=== PATIENT | female | born 1995 | race Caucasian/White ===

== ENCOUNTER 2019-04-17 03:06 | Inpatient (IN) ==
[2019-04-17] MEDS ORDERED: BRETHINE SUBQ ONE (03:15)
[2019-04-17] MEDS ORDERED: LR 2,000 ML ONE (03:20)
[2019-04-17] MEDS ORDERED: BRETHINE ONE (03:20)
[2019-04-17] MEDS: LR 1,000 ML IV SCH ×2 (03:40→04:05)
[2019-04-17] MEDS ORDERED: PEPCID ONE (03:43)
[2019-04-17] MEDS ORDERED: BICITRA ONE (03:43)
[2019-04-17] MEDS ORDERED: GENTAMICIN 80 MG/NS 80 MG/50 ML IVPB IV ONE (03:52)
[2019-04-17] MEDS ORDERED: CLINDAMYCIN 600 MG/D5W 600 MG/50 ML IVPB IV ONE (03:52)
[2019-04-17] MEDS ORDERED: DURAMORPH ONE (04:04)
[2019-04-17] MEDS ORDERED: FENTANYL ONE (04:05)
[2019-04-17 04:06] LABS: BASO# 0.03 X1000 (0.0-0.2); BASO% 0.1 % (0.0-0.8); EOS# 0.09 X1000 (0.0-0.7); EOS% 0.4 % (0.0-10.0); HEMATOCRIT 36.3 % (37.0-47.0); HEMOGLOBIN 12.1 g/dL (12.0-16.0); IMM GRAN# 0.17 X1000 (0.0-0.04); IMM GRAN% 0.8 % (0.0-0.5); LYMPH# 3.84 X1000 (1.2-3.4); LYMPH% 17.8 % (20.5-51.1); MCH 30.5 PG (27-31); MCHC 33.3 g/dL (33-37); MCV 91.4 FL (81-99); MONO# 1.72 X1000 (0.11-0.59); MPV 10.1 FL (7.4-10.4); NEUT# 15.68 X1000 (1.4-6.5); NEUT% 72.9 % (42.2-75.2); PLT 396 X1000 (130-400); RBC 3.97 XMIL (4.2-5.4); RDW 12.7 % (11.5-14.5); WBC 21.53 X1000 (4.8-10.8)
[2019-04-17] MEDS ORDERED: DECADRON ONE (04:06)
[2019-04-17] MEDS ORDERED: ZOFRAN ONE (04:06)
[2019-04-17] MEDS ORDERED: PITOCIN ONE (04:10)
--- NOTE | 2019-04-17 04:10 | HISTORY AND PHYSICAL ---
HISTORY OF PRESENT ILLNESS: Ms Metzger is a 23-year-old, 3, para 2 at 39 weeks gestation, who presents with advanced cervical dilatation, intact membranes, and breech presentation. She was at 5 cm, 80% effaced, bulging bag of water. Presenting part was not palpable, and a bedside ultrasound performed revealed a breech presentation with the head in the right upper quadrant of the maternal abdomen. PAST SURGICAL HISTORY: Tonsillectomy and adenectomy. PAST MEDICAL HISTORY: Negative. SOCIAL HISTORY: Positive for smoking. No alcohol or drugs. FAMILY HISTORY: Noncontributory. PAST GYNECOLOGIC HISTORY: Pertinent for history of placental abruption, kidney infections, Rh- negative status, UTIs. REVIEW OF SYSTEMS: Negative for chest pain, shortness of breath, headache, cough, runny nose, fever, sore throat. OB HISTORY: Two vaginal deliveries in the past. PHYSICAL EXAM: GENERAL: This is a well-developed, well-nourished woman appearing her stated age, in active labor. LUNGS: Nonlabored breathing. HEART: Regular rate and rhythm. ABDOMEN: Gravid. EXTREMITIES: Without clubbing, cyanosis, or edema. PELVIC: 5 cm, bulging bag of water, presenting part high station. ASSESSMENT: A 23-year-old 3, para 2, at 39 weeks gestation, breech presentation in active phase of labor. PLAN: 1. Primary section. I discussed risks, complications, benefits, alternatives, failure rate with the patient and her . Plan to proceed with same. 2. Rh negative. RhoGAM evaluation . 3. [place] allergic. Plan preop and gently cord clamp.
[2019-04-17 04:14] LABS: BANDS 1 % (0-1); EOS 2 % (1-10); LYMPHS 15 % (21-51); MONO 5 % (1-9); SEGS 76 % (42-75)
[2019-04-17 04:16] LABS: BURR CELLS OCCASIONAL; OVALOCYTES OCCASIONAL; POIKILOCYTOSIS OCCASIONAL; POLYCHROM OCCASIONAL
[2019-04-17] MEDS ORDERED: NEO-SYNEPHRINE ONE (04:17)
[2019-04-17] MEDS ORDERED: LR 1,000 ML ONE (04:25)
[2019-04-17] MEDS ORDERED: REGLAN PO ONE (05:04)
[2019-04-17] MEDS ORDERED: LR 500 ML IV ONE (05:04)
[2019-04-17] MEDS ORDERED: PEPCID PO ONE (05:04)
[2019-04-17] MEDS ORDERED: PITOCIN IM PRN (05:07)
[2019-04-17] MEDS ORDERED: DEMEROL IM PRN (05:07)
[2019-04-17] MEDS ORDERED: MYLICON PO PRN (05:07)
[2019-04-17] MEDS ORDERED: AMBIEN PO PRN (05:07)
[2019-04-17] MEDS ORDERED: M-M-R II VACCINE SUBQ ONE (05:07)
[2019-04-17] MEDS ORDERED: BOOSTRIX VACCINE IM ONE (05:07)
[2019-04-17] MEDS ORDERED: DULCOLAX PR PRN (05:07)
[2019-04-17] MEDS ORDERED: PERCOCET-5 PO PRN (05:07)
[2019-04-17] MEDS ORDERED: PHENERGAN IM PRN (05:07)
[2019-04-17] MEDS ORDERED: PITOCIN 20 UNITS/NS 20 UNITS/1,000 ML IV.SOLN IV ONE (05:07)
[2019-04-17] MEDS ORDERED: HYDROXYZINE IM PRN (05:07)
[2019-04-17] MEDS ORDERED: TORADOL ONE (05:20)
--- NOTE | 2019-04-17 05:49 | OPERATIVE NOTE ---
PROCEDURE DATE: 04/17/2019 PROCEDURE: A low transverse section, primary. PREOPERATIVE DIAGNOSES: 1. at 39 weeks gestation. 2. Labor. 3. Advanced cervical dilatation. 4. Breech presentation. POSTOPERATIVE DIAGNOSES: 1. at 39 weeks gestation. 2. Labor. 3. Advanced cervical dilatation. 4. Breech presentation. 5. Liveborn infant delivered via primary section. ANESTHESIA: Spinal. SURGEON: Dr. Herminio Macdonald. ESTIMATED BLOOD LOSS: 700 mL. COMPLICATIONS: None. FINDINGS: Live-born girl, breech presentation, sacrum left anterior. PROCEDURE NARRATIVE: After risks, complications, benefits, alternatives explained to the patient, patient was taken to the operating room with fluids running. Spinal anesthesia was obtained. The patient was prepped and draped in the supine position with left lateral tilt. The anesthesia was checked and a low transverse incision was made with a knife, carried out laterally. The Bovie was used to bring the incision down to the fascia. The incision was dissected laterally by blunt dissection and the fascia was nicked in the midline with a knife. The fascial incision was extended with Martinez scissors. The rectus muscles and fascia were dissected off the midline sharply and bluntly. The peritoneum was entered bluntly. A round Obdulio retractor was placed. A low transverse incision was made in the uterus, carried out laterally by blunt dissection. The breech was delivered without difficulty. The legs were delivered and the breech was extracted to the shoulder blades. The arms were delivered without difficulty and the head was delivered with Jigar maneuver, keeping pressure on the vertex to maintain a flexed position. The cord was clamped x2 and cut, and the handed to the waiting pediatric resuscitation team. Cord blood was obtained. The placenta delivered intact with a three-vessel cord with gentle traction. The uterus was swept with a lap, and the incision was closed with single layer of #1 Monocryl in a running locked fashion. The corners were tagged and the incision was irrigated and found to be completely hemostatic. The tags were cut and the Obdulio retractor was removed. The rectus muscles were approximated in midline with 2-0 chromic, incorporating the peritoneum. The fascia was then closed with 0 PDS. All layers irrigated and found to be hemostatic. The skin was closed with skin clips. There was a small 1 cm extension of the skin incision on the patient right, most likely during breech extraction, this was closed with a single skin clip. Sponge, lap, and needle counts correct x2. The patient tolerated procedure well, to recovery room in stable condition.
[2019-04-17] MEDS ORDERED: BENADRYL IV PRN (09:00)
[2019-04-17] MEDS ORDERED: NARCAN INJ PRN (09:00)
[2019-04-17] MEDS ORDERED: ZOFRAN ODT PO PRN (09:00)
[2019-04-17] MEDS ORDERED: ZOFRAN IV PRN ×2 (09:00)
[2019-04-17] MEDS: MYLICON PO SCH ×4 (10:02→22:24)
[2019-04-17] MEDS: OFIRMEV 1000 MG/ISOTONIC SOLN 1,000 MG/100 ML BOTTLE IV SCH ×2 (10:02→16:38)
[2019-04-17] MEDS: ATARAX PO PRN ×2 (10:15→22:31)
[2019-04-17] MEDS: TORADOL IV SCH ×3 (11:07→22:24)
[2019-04-17] MEDS: PITOCIN 10 UNITS/NS 1,000 ML IV SCH (14:11)
[2019-04-17] MEDS: PERICOLACE PO SCH (22:24)
[2019-04-17] MEDS ORDERED: NICODERM PATCH TD SCH (23:45)
[2019-04-18] MEDS: OFIRMEV 1000 MG/ISOTONIC SOLN 1,000 MG/100 ML BOTTLE IV SCH (03:04)
[2019-04-18] MEDS: PITOCIN 10 UNITS/NS 1,000 ML IV SCH (03:06)
[2019-04-18] MEDS: LR 1,000 ML IV SCH ×3 (04:21→18:38)
[2019-04-18] MEDS ORDERED: LR 1,000 ML IV SCH (05:07)
[2019-04-18 07:02] LABS: BASO# 0.03 X1000 (0.0-0.2); BASO% 0.2 % (0.0-0.8); EOS# 0.18 X1000 (0.0-0.7); EOS% 1.1 % (0.0-10.0); HEMATOCRIT 29.5 % (37.0-47.0); HEMOGLOBIN 9.2 g/dL (12.0-16.0); IMM GRAN# 0.09 X1000 (0.0-0.04); IMM GRAN% 0.6 % (0.0-0.5); LYMPH# 3.18 X1000 (1.2-3.4); LYMPH% 19.5 % (20.5-51.1); MCH 29.5 PG (27-31); MCHC 31.2 g/dL (33-37); MCV 94.6 FL (81-99); MONO# 1.85 X1000 (0.11-0.59); MONO% 11.4 % (1.7-9.3); MPV 10.4 FL (7.4-10.4); NEUT# 10.94 X1000 (1.4-6.5); NEUT% 67.2 % (42.2-75.2); PLT 338 X1000 (130-400); RBC 3.12 XMIL (4.2-5.4); RDW 12.8 % (11.5-14.5); WBC 16.27 X1000 (4.8-10.8)
[2019-04-18] MEDS: FERROUS SULFATE PO SCH (09:33)
[2019-04-18] MEDS: MYLICON PO SCH ×4 (09:34→20:30)
[2019-04-18] MEDS: PERCOCET-10 PO PRN ×3 (09:46→18:14)
[2019-04-18] MEDS: MOTRIN PO PRN ×2 (09:47→18:15)
[2019-04-18] MEDS ORDERED: PEPCID PO ONE (20:03)
[2019-04-18] MEDS: PERICOLACE PO SCH (20:30)
[2019-04-19] MEDS: PERCOCET-10 PO PRN ×2 (00:18→04:14)
[2019-04-19] MEDS: MOTRIN PO PRN (04:14)
--- NOTE | 2019-04-19 07:35 | OB/GYN PROGRESS NOTE ---
Progress Note OB - . OB Progress Note: Vital Signs - 24 hr 04/18/19 07:48 04/18/19 12:00 04/18/19 16:40 Temperature 97.9 F 98.1 F 97.4 F L Pulse Rate 74 77 78 Respiratory Rate 20 20 20 Blood Pressure 104/58 109/56 96/52 O2 Sat by Pulse Oximetry 96 98 98 04/18/19 20:00 04/19/19 00:00 04/19/19 04:00 Temperature 97.6 F 96.8 F L 97.2 F L Pulse Rate 82 70 83 Respiratory Rate 20 18 18 Blood Pressure 121/65 114/67 109/66 O2 Sat by Pulse Oximetry 97 98 95 Laboratory Results - last 24 hr 04/18/19 05:20 ABO/Rh O NEGATIVE Screen NEGATIVE RhIG Candidate? YES 23 to POD #2 s/p 1LTCS at 39 weeks 2/2 breech presentation and labor with tobacco abuse, sinus drainage, Rh negative status, RNI, limited PNC. Doing well this AM. She does complain of sinus drainage. She states pain is well controlled with percocet/motrin. She is tolerating a regular diet and denies N/V, fever/chills. She is ambulating and voiding without difficulty. She is passing flatus. She is bottle feeding. She desires depo-provera injection prior to hospital discharge for PP contraception. She has received Rhogam for Rh negative status. Physical Exam-General - PHYSICAL EXAM-ADULT Initial Vital Signs Reviewed: Yes - CONSTITUTIONAL General Appearance: appears well, alert, no apparent distress - EYES Eyes: PERRL/EOMI - HEAD, EARS, NOSE, MOUTH & THROAT HENMT: normocephalic/atraumatic - RESPIRATORY Respiratory: lungs clear, normal breath sounds - CARDIOVASCULAR Cardiovascular: normal peripheral pulses, regular rate, rhythm - GASTROINTESTINAL (ABDOMEN) Abdominal Exam: normal bowel sounds, non tender, soft, other (Fundus firm, below umbilicus. Pfannensteil skin incision C/D/I with luis alberto.) - MUSCULOSKELETAL Extremity: normal range of motion, non-tender - PSYCHIATRIC Psych/Mental Status: normal mood/affect Assessment/Plan - Assessment/Plan Assessment: 23 yo POD #2 s/p 1LTCS at 39 weeks 2/2 breech and labor with Rh negative status, RNI, Limited PNC, Tobacco abuse, anemia, sinus drainage 1. HD stable, afebrile 2. Post-op Hgb 9.2> daily Ferrous sulfate 3. Rh negative> s/p Rhogam 4. RNI> MMR prior to hospital discharge 5. Depo-provera injection prior to discharge for PP contraception 6. Return to clinic in 1 week for staple removal, Wednesday 04/25 7. Recommend mucinex for sinus drainage, could be related to decreased smoking while in hospital 8. D/C home today, follow-up in 1 week for staple removal and 6 weeks for PP visit Althea Smallwood DO
[2019-04-19] MEDS ORDERED: DEPO-PROVERA IM ONE (07:37)
[2019-04-19 08:11] VITALS: BP 103/53
[2019-04-19] MEDS: FERROUS SULFATE PO SCH (08:33)
[2019-04-19] MEDS: MYLICON PO SCH (08:33)
[2019-04-19] MEDS ORDERED: MUCINEX PO SCH (09:00)
--- NOTE | 2019-04-20 12:31 | DISCHARGE SUMMARY ---
ADMISSION DATE: 04/17/2019 DISCHARGE DATE: 04/19/2019 CONDITION ON DISCHARGE: Stable. FINAL DIAGNOSES: 1. Postoperative day #2 status post primary low transverse section at 39 weeks for breech presentation. 2. Limited care. 3. Tobacco abuse. 4. Rubella nonimmune. 5. Rh-negative status. 6. Sinus drainage. PROCEDURE: Primary low-transverse section. HISTORY OF PRESENT ILLNESS: The patient is a 23-year-old, G 3, P 2-0-0-2 at 39 weeks, who presented with advanced cervical dilation, intact membranes and breech presentation. Decision was made to proceed with a primary low transverse section. This is performed on April 17. The patient had a routine postoperative course. On postop day 2, she was ambulating and voiding without difficulty. She was passing flatus. Her pain was controlled with p.o. Percocet and Motrin. Prior to discharge, she complained of sinus congestion. Mucinex started for congestion.She desired hospital discharge. She elected to receive Depo-Provera injection for contraception prior to hospital discharge. She also received RhoGAM and the MMR vaccine prior to hospital discharge. DISCHARGE MEDICATIONS: 1. Percocet 5/325 p.o. q. 4 hours p.r.n. pain, dispense #18. 2. Motrin 800 mg p.o. q. 8 hours p.r.n. pain. 3. Mucinex 600 mg p.o. q. 12 hours p.r.n. sinus drainage. DISCHARGE INSTRUCTIONS: Patient instructed to follow up with Dr. Esteves for staple removal in 1 week. She will also follow up in 6 weeks for routine visit. Patient instructed to notify doctor with temperature greater than 100.4 degrees Fahrenheit, severe abdominal pain, persistent nausea, vomiting, or heavy vaginal bleeding greater than 1 pad an hour. [facility] HOSPITALAracelis
== END 2019-04-19 11:30 | disposition home or self-care (01) | DRG 788 ==
LOC: P.LD 03:06
PROVIDERS: ADMIT Obstetrics & Gynecology; ATTEND Obstetrics & Gynecology